=== PATIENT | male | born 1970 | race African-American/Black ===

== ENCOUNTER 2024-02-27 17:17 | Emergency (ER) | payer OTHER, SELFPAY ==
--- NOTE | ~2024-02-27 | XR_ITS ---
EXAMINATION: XR chest 2V Exam Date/Time: 02/27/2024 17:45 [facility] HISTORY: chest pain AND WEAKNESS Comparison: None. RESULT: Lines, tubes, and devices: None. Lungs and pleura: Clear. Cardiomediastinal silhouette: Unremarkable. Other: No acute osseous or upper abdominal finding. IMPRESSION: No acute cardiopulmonary process. Reviewed, dictated and finalized at location [facility]
[2024-02-27 17:18] VITALS: BP 165/96; PULSE 71; RESP 38; O2SAT 100
--- NOTE | 2024-02-27 17:22 | ECG_ITS ---
Test Date: 2024-02-27 17:21:48 Measurements Intervals [place] Rate: 68 P: 42 KS: 175 QRS: -65 QRSD: 143 T: -30 QT: 404 QTc: 431 Interpretive Statements SINUS RHYTHM INTRAVENTRICULAR CONDUCTION DELAY BORDERLINE R WAVE PROGRESSION, ANTERIOR LEADS CONSIDER INFERIOR INFARCT, AGE INDETERMINATE BASELINE ARTIFACT- I, II, III, AVR, AVL, AVF, V1, V4-V6 ABNORMAL ECG No previous ECG available for comparison Electronically Signed On 02-27-2024 21:54:40 [employer]STRUMENT [employer] by Tejas Padilla D.O.
[2024-02-27] MEDS: NITROGLYCERIN SL 0.4 MG TABLET SUBLINGUAL (17:24)
[2024-02-27 17:27] VITALS: PULSE 65
[2024-02-27 17:31] VITALS: BP 143/96; PULSE 62; RESP 15; O2SAT 99
[2024-02-27 17:31] LABS: Basophils Absolute Auto 0.1 K/mm3 (0.0-0.1); Basophils Percent Auto 0.5 % (0.2-1.2); Eosinophils Absolute Auto 0.2 K/mm3 (0-0.3); Eosinophils Percent Auto 1.5 % (0-4.4); Hemoglobin 15.1 g/dL (14.0-18.0); Immature Granulocyte Absolute 0.02 K/mm3 (0.00-0.031); Immature Granulocyte Percent A 0.2 % (0-0.5); Lymphocytes Absolute Auto 3.91 K/mm3 (0.9-3.2); Lymphocytes Percent Auto 39.9 % (18.3-44.2); Mean Corpuscular HGB Conc 33.6 g/dl (32-36); Mean Corpuscular Hemoglobin 28.5 pg (26-34); Mean Corpuscular Volume 84.9 fl (80-100); Mean Platelet Volume 9.5 fl (7.4-10.4); Monocytes Absolute Auto 0.9 K/mm3 (0.1-0.6); Monocytes Percent Auto 9.6 % (2.6-8.5); Neutrophils Absolute Auto 4.7 K/mm3 (1.3-6.7); Neutrophils Percent Auto 48.3 % (45.5-73.1); Platelet Count Result 284 k/mm3 (150-375); Red Cell Distribution Width 13.9 % (11.5-14.5); White Blood Count 9.8 K/mm3 (4.5-10.0)
--- NOTE | 2024-02-27 17:35 | PC.NURSE ---
Pt also c/o rectal bleeding. Dr. Swain at bedside to do rectal exam
[2024-02-27 17:42] LABS: Alanine Aminotransferase 21 U/L (6-50); Albumin Level 4.7 g/dL (3.5-5.1); Alkaline Phosphatase 106 U/L (38-126); Anion Gap 8 mmol/L (4-12); Aspartate Amino Transferase 30 U/L (17-59); Bilirubin,Total 0.6 mg/dL (0.2-1.3); Blood Urea Nitrogen 11 mg/dL (9-20); Calcium 9.4 mg/dL (8.4-10.2); Carbon Dioxide 25 mmol/L (22-30); Chloride 108 mmol/L (98-107); Estimated CRCL calculation 97 ml/min; Estimated Glomerular Filt Rate > 60; Glucose 89 mg/dL (65-110); Lipase 58 U/L (23-300); Potassium 3.8 mmol/L (3.4-5.0); Sodium 141 mmol/L (137-145)
[2024-02-27 17:48] LABS: INR 0.9; Prothrombin Time 12.6 Seconds (11.1-14.7)
--- NOTE | 2024-02-27 17:48 | ED_ITS ---
HPI - General Adult General Chief complaint: Chest Pain <Brady Swain MD - Last Filed: 02/27/24 18:37> Stated complaint: chest pain <Brady Swain MD - Last Filed: 02/27/24 18:37> Time Seen by Provider: 02/27/24 17:27 <Brady Swain MD - Last Filed: 02/27/24 18:37> History of Present Illness HPI narrative: This is a 54-year-old male presenting ED with chief complaint of chest pain. Patient was arrested. He then developed sharp pain in the center of his chest. He was then brought to the ED for further eval. Patient says his pain started 1 hour prior to arrival and is a sharp pain in center of his chest. Non radiating, 8/10, constant. He has never experienced pain like this before and there are no exacerbating or alleviating factors. It is associated with difficulty breathing. It is nonradiating, nonexertional and no vomiting. Patient says he has a history of heart disease he is unsure exactly what it was. patient denies fevers or chills, says he has a productive cough, denies abdominal pain. He notes 5 episodes of diarrhea in the last day. patient was released from police custody when he was brought to hospital for chest pain. <Brady Swain MD - Last Filed: 02/27/24 18:37> Related Data Allergies/adverse reactions: Allergies Allergy/AdvReac Type Severity Reaction Status Date / Time ibuprofen Allergy Hives Verified 02/27/24 17:23 <Brady Swain MD - Last Filed: 02/27/24 18:37> Exam Narrative: APPEARANCE: patient is lying in bed with his eyes closed, he is holding his arms against his body and moaning Head: atraumatic. EYES: EOMI, NOSE: Atraumatic NECK: Trachea midline RESPIRATORY: No increased rate of breathing clear to auscultation CARDIOVASCULAR: RRR, no peripheral edema ABDOMINAL: Non-distended soft nontender MUSCULOSKELETAl: No obvious deformities NEURO: Alert. Moving 4/4 extremities SKIN:: Warm, dry. Normal color <Brady Swain MD - Last Filed: 02/27/24 18:37> Course Course Emergency Course: Patient signed out to my previous provider pending repeat troponin and likely discharge home. Patient was seen here for chest pain that began after being incarcerated by police. Charges were dropped and he was released from her custody and his symptoms resolved according to the previous provider. Workup here was largely reassuring, urine drug screen did come back positive for opiates and cocaine which could contribute to her symptoms. Patient is pending his repeat troponin but I was informed by nursing staff that he had eloped at this time. <Brett Adams MD - Last Filed: 02/27/24 20:30> Vital Signs Vital signs: Vital Signs Pulse Rate 71 02/27/24 17:18 Respiratory Rate 38 H 02/27/24 17:18 Blood Pressure 165/96 H 02/27/24 17:18 Pulse Oximetry 100 02/27/24 17:18 Oxygen Delivery Room Air 02/27/24 17:18 Pulse Rate 64 02/27/24 18:18 Respiratory Rate 17 02/27/24 18:18 Blood Pressure 156/108 H 02/27/24 18:18 Pulse Oximetry 98 02/27/24 19:03 Oxygen Delivery Room Air 02/27/24 19:03 <Brady Swain MD - Last Filed: 02/27/24 18:37> Vital Signs Pulse Rate 71 02/27/24 17:18 Respiratory Rate 38 H 02/27/24 17:18 Blood Pressure 165/96 H 02/27/24 17:18 Pulse Oximetry 100 02/27/24 17:18 Oxygen Delivery Room Air 02/27/24 17:18 Pulse Rate 64 02/27/24 18:18 Respiratory Rate 17 02/27/24 18:18 Blood Pressure 156/108 H 02/27/24 18:18 Pulse Oximetry 98 02/27/24 19:03 Oxygen Delivery Room Air 02/27/24 19:03 <Brett Adams MD - Last Filed: 02/27/24 20:30> Medical Decision Making MDM Narrative Medical decision making narrative: -Course: 54-year-old male presenting from residential with atypical chest pain. initially patient was in significant distress and was moaning and crying. He was informed that he is no longer in police custody and his symptoms started to improve. Chest pain workup was obtained. Initial workup including CXR, EKG, troponin, BNP, and D-dimer was unremarkable. patient was re-evaluated At the end of my shift in his says he is feeling much better. His chest pain has resolved. Patient signed out to the oncoming physician pending repeat troponin and re- evaluation. -DDX includes but is not limited to: ACS, PE, dissection ,pneumonia, pneumothorax, secondary gain/malingering -Hx from independent Sources: EMS -Independent interpretation of studies: labs reviewed Independent EKG interpretation: Rhythm [sinus], Rate [68], [place] -[normal], AR -[normal], QRS [narrow], QTC [normal], T waves -[negative for concerning inversions], ST Segments - [Negative for concerning elevations] Final interpretations: normal sinus rhythm with LVH pattern CBC and metabolic panel unremarkable initial troponin undetectable. D-dimer undetectable. BNP normal. -Interventions: Aspirin, nitro -Shared decision making / Disposition: Signed out. <Brady Swain MD - Last Filed: 02/27/24 18:37> Vital Signs Vital Signs: Vital Signs Pulse Rate 71 02/27/24 17:18 Respiratory Rate 38 H 02/27/24 17:18 Blood Pressure 165/96 H 02/27/24 17:18 Pulse Oximetry 100 02/27/24 17:18 Oxygen Delivery Room Air 02/27/24 17:18 Pulse Rate 64 02/27/24 18:18 Respiratory Rate 17 02/27/24 18:18 Blood Pressure 156/108 H 02/27/24 18:18 Pulse Oximetry 98 02/27/24 19:03 Oxygen Delivery Room Air 02/27/24 19:03 <Brady Swain MD - Last Filed: 02/27/24 18:37> Vital Signs Pulse Rate 71 02/27/24 17:18 Respiratory Rate 38 H 02/27/24 17:18 Blood Pressure 165/96 H 02/27/24 17:18 Pulse Oximetry 100 02/27/24 17:18 Oxygen Delivery Room Air 02/27/24 17:18 Pulse Rate 64 02/27/24 18:18 Respiratory Rate 17 02/27/24 18:18 Blood Pressure 156/108 H 02/27/24 18:18 Pulse Oximetry 98 02/27/24 19:03 Oxygen Delivery Room Air 02/27/24 19:03 <Brett Adams MD - Last Filed: 02/27/24 20:30> Lab Data Result diagrams: 02/27/24 17:24 02/27/24 17:24 <Brady Swain MD - Last Filed: 02/27/24 18:37> Labs: Lab Results 02/27/24 02/27/24 Range/Units 17:24 18:45 WBC 9.8 (4.5-10.0) K/mm3 RBC 5.30 (4.6-6.20) M/mm3 Hgb 15.1 (14.0-18.0) g/dL Hct 45.0 (42.0-52.0) % MCV 84.9 (80-100) fl MCH 28.5 (26-34) pg MCHC 33.6 (32-36) g/dl RDW 13.9 (11.5-14.5) % Plt Count 284 (150-375) k/mm3 MPV 9.5 (7.4-10.4) fl Immature Gran % (Auto) 0.2 (0-0.5) % Neut % (Auto) 48.3 (45.5-73.1) % Lymph % (Auto) 39.9 (18.3-44.2) % [place] % (Auto) 9.6 H (2.6-8.5) % Eos % (Auto) 1.5 (0-4.4) % Baso % (Auto) 0.5 (0.2-1.2) % Lymph # (Auto) 3.91 H (0.9-3.2) K/mm3 [place] # (Auto) 0.9 H (0.1-0.6) K/mm3 Eos # (Auto) 0.2 (0-0.3) K/mm3 Baso # (Auto) 0.1 (0.0-0.1) K/mm3 Abs Immat Gran (auto) 0.02 (0.00-0.031) K/mm3 Absolute Neuts (auto) 4.7 (1.3-6.7) K/mm3 Absolute Nucleated RBC 0.000 (0.0-0.012) K/mm3 Nucleated RBC % 0.0 (0.0-0.2) % PT 12.6 (11.1-14.7) Seconds INR 0.9 APTT 34.0 (22.3-36.8) Seconds D-Dimer < 0.27 (<0.48) ug/mL Sodium 141 (137-145) mmol/L Potassium 3.8 (3.4-5.0) mmol/L Chloride 108 H (98-107) mmol/L Carbon Dioxide 25 (22-30) mmol/L Anion Gap 8 (4-12) mmol/L BUN 11 (9-20) mg/dL Creatinine 0.90 (0.7-1.3) mg/dL Estim Creat Clear Calc 97 ml/min Estimated GFR > 60 (59 - ) Glucose 89 (65-110) mg/dL Calcium 9.4 (8.4-10.2) mg/dL Total Bilirubin 0.6 (0.2-1.3) mg/dL AST 30 (17-59) U/L ALT 21 (6-50) U/L Alkaline Phosphatase 106 (38-126) U/L Troponin I < 0.012 (0.000-0.034) ng/mL NT-Pro-B Natriuret Pep 174 H (19.9-100) pg/mL Total Protein 8.0 (6.3-8.2) g/dL Albumin 4.7 (3.5-5.1) g/dL Lipase 58 (23-300) U/L Urine Color Yellow (Yellow) Urine Appearance Clear (Clear) Urine pH 6.0 (5.0-9.0) Ur Specific [place] 1.016 (1.001-1.035) Urine Protein Negative (Negative) mg/dL Urine Glucose (UA) Negative (Negative) mg/dL Urine Ketones Negative (Negative) mg/dL Ur Blood (Man) Negative (Negative) Urine Nitrate Negative (Negative) Urine Bilirubin Negative (Negative) Urine Urobilinogen 1.0 (<2.0) mg/dL Leukocyte Esterase Rfl Negative (Negative) BEN/UL Urine Opiates Screen Positive A (Negative) Urine Methadone Screen Negative (Negative) Ur Barbiturates Screen Negative (Negative) Ur Phencyclidine Scrn Negative (Negative) Ur Amphetamine Screen Negative (Negative) U Benzodiazepines Scrn Negative (Negative) Urine Cocaine Screen Positive A (Negative) U Cannabinoids Screen Positive A (Negative) Ethyl Alcohol < 10 (<10) mg/dL <Brady Swain MD - Last Filed: 02/27/24 18:37> Lab Results 02/27/24 02/27/24 Range/Units 17:24 18:45 WBC 9.8 (4.5-10.0) K/mm3 RBC 5.30 (4.6-6.20) M/mm3 Hgb 15.1 (14.0-18.0) g/dL Hct 45.0 (42.0-52.0) % MCV 84.9 (80-100) fl MCH 28.5 (26-34) pg MCHC 33.6 (32-36) g/dl RDW 13.9 (11.5-14.5) % Plt Count 284 (150-375) k/mm3 MPV 9.5 (7.4-10.4) fl Immature Gran % (Auto) 0.2 (0-0.5) % Neut % (Auto) 48.3 (45.5-73.1) % Lymph % (Auto) 39.9 (18.3-44.2) % [place] % (Auto) 9.6 H (2.6-8.5) % Eos % (Auto) 1.5 (0-4.4) % Baso % (Auto) 0.5 (0.2-1.2) % Lymph # (Auto) 3.91 H (0.9-3.2) K/mm3 [place] # (Auto) 0.9 H (0.1-0.6) K/mm3 Eos # (Auto) 0.2 (0-0.3) K/mm3 Baso # (Auto) 0.1 (0.0-0.1) K/mm3 Abs Immat Gran (auto) 0.02 (0.00-0.031) K/mm3 Absolute Neuts (auto) 4.7 (1.3-6.7) K/mm3 Absolute Nucleated RBC 0.000 (0.0-0.012) K/mm3 Nucleated RBC % 0.0 (0.0-0.2) % PT 12.6 (11.1-14.7) Seconds INR 0.9 APTT 34.0 (22.3-36.8) Seconds D-Dimer < 0.27 (<0.48) ug/mL Sodium 141 (137-145) mmol/L Potassium 3.8 (3.4-5.0) mmol/L Chloride 108 H (98-107) mmol/L Carbon Dioxide 25 (22-30) mmol/L Anion Gap 8 (4-12) mmol/L BUN 11 (9-20) mg/dL Creatinine 0.90 (0.7-1.3) mg/dL Estim Creat Clear Calc 97 ml/min Estimated GFR > 60 (59 - ) Glucose 89 (65-110) mg/dL Calcium 9.4 (8.4-10.2) mg/dL Total Bilirubin 0.6 (0.2-1.3) mg/dL AST 30 (17-59) U/L ALT 21 (6-50) U/L Alkaline Phosphatase 106 (38-126) U/L Troponin I < 0.012 (0.000-0.034) ng/mL NT-Pro-B Natriuret Pep 174 H (19.9-100) pg/mL Total Protein 8.0 (6.3-8.2) g/dL Albumin 4.7 (3.5-5.1) g/dL Lipase 58 (23-300) U/L Urine Color Yellow (Yellow) Urine Appearance Clear (Clear) Urine pH 6.0 (5.0-9.0) Ur Specific [place] 1.016 (1.001-1.035) Urine Protein Negative (Negative) mg/dL Urine Glucose (UA) Negative (Negative) mg/dL Urine Ketones Negative (Negative) mg/dL Ur Blood (Man) Negative (Negative) Urine Nitrate Negative (Negative) Urine Bilirubin Negative (Negative) Urine Urobilinogen 1.0 (<2.0) mg/dL Leukocyte Esterase Rfl Negative (Negative) BEN/UL Urine Opiates Screen Positive A (Negative) Urine Methadone Screen Negative (Negative) Ur Barbiturates Screen Negative (Negative) Ur Phencyclidine Scrn Negative (Negative) Ur Amphetamine Screen Negative (Negative) U Benzodiazepines Scrn Negative (Negative) Urine Cocaine Screen Positive A (Negative) U Cannabinoids Screen Positive A (Negative) Ethyl Alcohol < 10 (<10) mg/dL <Brett Adams MD - Last Filed: 02/27/24 20:30> Discharge Plan Discharge Clinical Impression: Atypical chest pain <Brady Swain MD - Last Filed: 02/27/24 18:37> Patient Disposition: Elopement After Seen by Prov <Brady Swain MD - Last Filed: 02/27/24 18:37> Condition: Stable <Brady Swain MD - Last Filed: 02/27/24 18:37> Time of Disposition: 20:29 <Brady Swain MD - Last Filed: 02/27/24 18:37> 20:29 <Brett Adams MD - Last Filed: 02/27/24 20:30> Quality HEART score for chest pain patients History: slightly suspicious <Brady Swain MD - Last Filed: 02/27/24 18:37> ECG: normal <Brady Swain MD - Last Filed: 02/27/24 18:37> Age: > 45 and < 65 years <Brady Swain MD - Last Filed: 02/27/24 18:37> Risk factors: 1 or 2 risk factors <Brady Swain MD - Last Filed: 02/27/24 18:37> Troponin: < or = to 1x normal limit <Brady Swain MD - Last Filed: 02/27/24 18:37> Heart score: 2 <Brady Swain MD - Last Filed: 02/27/24 18:37> 2 <Brett Adams MD - Last Filed: 02/27/24 20:30>
[2024-02-27 17:54] LABS: Troponin I < 0.012 ng/mL (0.000-0.034)
[2024-02-27 17:56] LABS: D Dimer < 0.27 ug/mL (<0.48)
[2024-02-27 18:01] VITALS: BP 155/84; PULSE 57; RESP 12; O2SAT 99
[2024-02-27 18:06] LABS: Ethanol < 10 mg/dL (<10)
[2024-02-27 18:16] LABS: NT Pro B Type Natriuretic Pept 174 pg/mL (19.9-100)
[2024-02-27 18:18] VITALS: BP 156/108; PULSE 64; RESP 17; O2SAT 98
[2024-02-27 19:00] LABS: Add Urine Microscopic? NO; Appearance Urine Clear (Clear); Bilirubin Urine Negative (Negative); Blood Urine Negative (Negative); Color Urine Yellow (Yellow); Glucose Urine UA Negative (Negative); Ketones Urine Negative (Negative); Leukocyte Esterase Ur Negative LEU/UL (Negative); Nitrate Urine Negative (Negative); Protein Urine Negative (Negative); Specific Grav Ur 1.016 (1.001-1.035)
[2024-02-27 19:03] VITALS: O2SAT 98
[2024-02-27 19:19] LABS: Amphetamine Screen Urine Negative (Negative); Barbiturate Screen Urine Negative (Negative); Benzodiazepines Screen Urine Negative (Negative); Cannabinoid Screen Urine Positive (Negative); Cocaine Screen Urine Positive (Negative); Methadone Screen Urine Negative (Negative); Opiate Screen Urine Positive (Negative); Phencyclidine Screen Urine Negative (Negative)
== END 2024-02-27 19:30 | disposition left against medical advice (07) ==
PROVIDERS: Emergency Provider Emergency Medicine
DX: R07.89 Other chest pain (principal); R06.9 Unspecified abnormalities of breathing; I51.9 Heart disease, unspecified; I45.9 Conduction disorder, unspecified; R94.31 Abnormal electrocardiogram [ECG] [EKG]
CPT/HCPCS: 36415; 71046; 80053; 80307; 81003; 82077; 83690; 83880; 84484; 85025; 85380; 85610; 85730; 93005; 99284; A9270